=== PATIENT | female | born 1985 | race Caucasian/White ===

== ENCOUNTER 2016-12-10 23:36 | Emergency (ER) | payer MEDICAID ==
[~2016-12-10] VITALS: Ht 157.5 cm; Wt 59.1 kg
[2016-12-11 02:14] LABS: APPEARANCE,URINE CLOUDY (CLEAR); GLUCOSE, URINE (UA) NEGATIVE (NEGATIVE); KETONES,URINE NEGATIVE (NEGATIVE); LEUKOCYTE ESTERASE ,URINE NEGATIVE (NEGATIVE); OCCULT BLOOD,URINE NEGATIVE (NEGATIVE); PROTEIN,URINE NEGATIVE (NEGATIVE)
[2016-12-11 02:15] LABS: ADD UA MICROSCOPIC NO
[2016-12-11 02:58] VITALS: BP 145/87
[2016-12-11] MEDS ORDERED: IBUPROFEN 600 MG TABLET PO ONE (03:00)
== END 2016-12-11 03:14 | disposition home or self-care (01) ==
LOC: EMS 23:37
DX: R51 Headache (principal)
CPT/HCPCS: 99284